=== PATIENT | male | born 1945 | race Caucasian/White ===

== ENCOUNTER 2024-10-14 07:22 | Inpatient (IN) | payer MEDICARE, OTHER ==
[~2024-10-14] VITALS: Ht 172.7 cm; Wt 89.8 kg
[2024-10-14 07:56] LABS: PLATELET COUNT (AUTO) 163 K/uL (152-348); RED BLOOD CELL COUNT(AUTO) 5.59 MIL/uL (4.06-5.63); RED CELL DISTRIBUTION WIDTH 15.3 % (12.1-16.2); WHITE BLOOD COUNT (AUTO) 7.9 K/uL (3.6-10.2)
[2024-10-14 08:07] LABS: CREATININE 1.0 mg/dL (0.6-1.3); SODIUM SERUM 137 mmol/L (136-145); UREA NITROGEN, BLOOD 20 mg/dL (7-18)
[2024-10-14] MEDS ORDERED: ROSU20TA2 PO (08:09)
[2024-10-14] MEDS ORDERED: OMEP40CA21 PO (08:09)
[2024-10-14] MEDS ORDERED: ICOS1CAP PO ×2 (08:09)
[2024-10-14] MEDS ORDERED: CHOL500062 PO (08:09)
[2024-10-14] MEDS ORDERED: SEMA1PEN SQ (08:09)
[2024-10-14] MEDS ORDERED: CYAN250010 PO (08:09)
[2024-10-14] MEDS ORDERED: BUDE10.22 INH (08:09)
[2024-10-14] MEDS ORDERED: RANO500T6 PO (08:09)
[2024-10-14] MEDS ORDERED: EMPA25TA PO (08:09)
[2024-10-14] MEDS ORDERED: LISI20TA30 PO (08:09)
[2024-10-14] MEDS ORDERED: FOLI1TAB27 PO (08:09)
[2024-10-14] MEDS ORDERED: APIX5TAB PO (08:09)
[2024-10-14] MEDS ORDERED: MAGN400T40 PO (08:09)
[2024-10-14] MEDS ORDERED: METF-442 PO (08:09)
[2024-10-14 08:13] LABS: ASPARTATE AMINOTRANSFERASE 8 U/L (15-37); TOTAL PROTEIN, SERUM 7.0 g/dL (6.4-8.2)
[2024-10-14 08:56] LABS: BASOPHILS % (MANUAL) 1 % (0-2); EOSINOPHILS % (MANUAL) 1 % (0-8); LYMPHOCYTES % (MANUAL) 12 % (20-40); MONOCYTES % (MANUAL) 18 % (2-10); NEUTROPHILS % (MANUAL) 69 % (42-75); PLATELET ESTIMATE ADEQUATE
[2024-10-14 10:06] LABS: *BILIRUBIN,URIN NEGATIVE (NEGATIVE); *BLOOD, URINE NEGATIVE (NEGATIVE); *CLARITY,URINE CLEAR (CLEAR); *COLOR,URINE YELLOW (YELLOW); *KETONES,URINE 1+ (NEGATIVE); *PROTEIN,URINE NEGATIVE (NEGATIVE); *UROBILINOGEN,URINE 0.2 E.U./dl (NORMAL); LEUKOCYTE ESTERASE ,URINE NEGATIVE (NEGATIVE); NITRITE, URINE NEGATIVE (NEGATIVE); UGLUCOSE 3+ (NEGATIVE)
[2024-10-14 10:10] LABS: URINE AMORPHOUS URATE FEW /HPF
[2024-10-14] MEDS ORDERED: KETO15CR2 TP (12:43)
[2024-10-14] MEDS ORDERED: BUDE10.26 INH (12:45)
[2024-10-14] MEDS ORDERED: ERGO500040 PO (12:47)
[2024-10-14 12:48] VITALS: BP 127/77; TEMP 98.4; O2SAT 96
[2024-10-14] MEDS ORDERED: CYAN-51 PO (12:49)
[2024-10-14] MEDS ORDERED: IPRA21SP BNOSTRILS (12:50)
[2024-10-14 12:51] VITALS: BP 113/74
[2024-10-14] MEDS ORDERED: INSU100I4 SQ (12:51)
[2024-10-14 12:52] VITALS: BP 117/73
[2024-10-14] MEDS ORDERED: METF-867 PO (12:53)
[2024-10-14] MEDS ORDERED: INSU100I26 SQ (12:54)
[2024-10-14] MEDS ORDERED: NITR0.4T48 SL (12:55)
[2024-10-14] MEDS ORDERED: NITROGLYCERIN 0.4 MG/TAB BOTTLE SL PRN (14:45)
[2024-10-14] MEDS: FOLIC ACID 1 MG TABLET PO SCH (15:21)
[2024-10-14] MEDS: EMPAGLIFLOZIN 25 MG TABLET PO SCH (15:21)
[2024-10-14 15:30] VITALS: BP 109/70; TEMP 98.1; O2SAT 98
[2024-10-14] MEDS: KETOCONAZOLE 2% CREAM 30 GM TUBE TP SCH (17:24)
[2024-10-14] MEDS: METFORMIN XR 500 MG TAB.SR.24H PO SCH (17:24)
[2024-10-14] MEDS ORDERED: DEXTROSE 50% 50 ML DISP.SYRIN IV PRN (19:00)
[2024-10-14] MEDS ORDERED: TEMAZEPAM 15 MG CAPSULE PO PRN (19:00)
[2024-10-14] MEDS ORDERED: ONDANSETRON 4 MG/2 ML VIAL IV PRN (19:00)
[2024-10-14] MEDS ORDERED: ACETAMINOPHEN 325 MG TABLET PO PRN (19:00)
[2024-10-14 19:49] VITALS: BP 100/62; TEMP 98.2; O2SAT 99
[2024-10-14] MEDS: BLOOD SUGAR DIAGNOSTIC 1 EACH STRIP VI SCH (20:26)
[2024-10-14] MEDS: MAGNESIUM OXIDE 400 MG TABLET PO SCH (20:28)
[2024-10-14] MEDS: RANOLAZINE 500 MG TAB.ER.12H PO SCH (20:28)
[2024-10-14] MEDS: APIXABAN 5 MG TABLET PO SCH (20:29)
[2024-10-14] MEDS: INSULIN REGULAR, HUMAN 1000 UNIT/10 ML VIAL SQ PRN (20:39)
[2024-10-15 00:30] VITALS: BP 110/68; TEMP 98.8; O2SAT 94
[2024-10-15 04:17] VITALS: BP 105/73; TEMP 97.9; O2SAT 97
[2024-10-15 06:49] LABS: PLATELET COUNT (AUTO) 159 K/uL (152-348); RED BLOOD CELL COUNT(AUTO) 5.67 MIL/uL (4.06-5.63); RED CELL DISTRIBUTION WIDTH 15.0 % (12.1-16.2); WHITE BLOOD COUNT (AUTO) 4.9 K/uL (3.6-10.2)
[2024-10-15] MEDS: PANTOPRAZOLE SODIUM 40 MG TABLET.DR PO SCH (07:08)
[2024-10-15 07:45] LABS: ASPARTATE AMINOTRANSFERASE 15 U/L (15-37); CREATININE 1.0 mg/dL (0.6-1.3); SODIUM SERUM 134 mmol/L (136-145); TOTAL PROTEIN, SERUM 6.8 g/dL (6.4-8.2); UREA NITROGEN, BLOOD 23 mg/dL (7-18)
[2024-10-15 08:00] VITALS: BP 115/76; TEMP 97.7; O2SAT 98
[2024-10-15] MEDS ORDERED: TEMAZEPAM 7.5 MG CAPSULE PO PRN (08:00)
[2024-10-15] MEDS ORDERED: Medication Not On Formulary EA (Icosapent Ethyl (Vascepa) 1 GM) PO SCH (09:00)
[2024-10-15 11:30] VITALS: BP 112/76; TEMP 98.4; O2SAT 95
[2024-10-15 13:57] LABS: BAND % (MANUAL) 5 % (0-10); EOSINOPHILS % (MANUAL) 2 % (0-8); LYMPHOCYTES % (MANUAL) 30 % (20-40); MONOCYTES % (MANUAL) 18 % (2-10); NEUTROPHILS % (MANUAL) 45 % (42-75); PLATELET ESTIMATE ADEQUATE
== END 2024-10-15 12:10 | disposition home health service (06) | DRG 74 ==
LOC: ER 07:22 → TELE3 10:33
PROVIDERS: ADMIT Internal Medicine; ATTEND Internal Medicine
DX: G90.89 Other disorders of autonomic nervous system (principal); E86.0 Dehydration; E11.9 Type 2 diabetes mellitus without complications; I10 Essential (primary) hypertension; I25.10 Atherosclerotic heart disease of native coronary artery without angina pectoris; Z79.01 Long term (current) use of anticoagulants; Z95.1 Presence of aortocoronary bypass graft; I48.0 Paroxysmal atrial fibrillation; Z79.84 Long term (current) use of oral hypoglycemic drugs; E78.5 Hyperlipidemia, unspecified; Z79.899 Other long term (current) drug therapy; R11.2 Nausea with vomiting, unspecified; E66.9 Obesity, unspecified; Z68.30 Body mass index [BMI] 30.0-30.9, adult; Z53.29 Procedure and treatment not carried out because of patient's decision for other reasons; R79.89 Other specified abnormal findings of blood chemistry
CPT/HCPCS: 36415; 70030-TC; 71045; 74018; 82652; 83605; 83735; 84100; 84443; 84484; 85025; 85730; 93307; A4606; A4663; G0378; J1815